=== PATIENT | female | born 1990 | race Two or more races ===

== ENCOUNTER 2020-11-24 14:01 | Outpatient (CLI) | payer OTHER | END 2020-11-24 15:16 | disposition home or self-care (01) | LOC: PRENATAL 14:01 | PROVIDERS: ATTEND Obstetrics & Gynecology Maternal & Fetal Medicine | DX: O35.0XX1 Maternal care for (suspected) central nervous system malformation in fetus, fetus 1 (principal); O35.3XX1 Maternal care for (suspected) damage to fetus from viral disease in mother, fetus 1; O98.512 Other viral diseases complicating pregnancy, second trimester; O34.212 Maternal care for vertical scar from previous cesarean delivery; Z36.89 Encounter for other specified antenatal screening; Z3A.24 24 weeks gestation of pregnancy ==

== ENCOUNTER 2021-01-25 14:55 | Outpatient (CLI) | payer OTHER | END 2021-01-25 15:35 | disposition home or self-care (01) | LOC: PRENATAL 14:55 | PROVIDERS: ATTEND Obstetrics & Gynecology Maternal & Fetal Medicine | DX: O26.843 Uterine size-date discrepancy, third trimester (principal); O35.0XX1 Maternal care for (suspected) central nervous system malformation in fetus, fetus 1; O36.8131 Decreased fetal movements, third trimester, fetus 1; Z36.89 Encounter for other specified antenatal screening; Z3A.32 32 weeks gestation of pregnancy ==

== ENCOUNTER 2021-02-24 14:33 | Inpatient (IN) | payer OTHER ==
[~2021-02-24] VITALS: Ht 154.9 cm; Wt 2.7 kg
[2021-03-01] MEDS ORDERED: ZOFRAN4 MG PO (08:43)
[2021-03-01] MEDS ORDERED: PRENATAL CAPLE1 EAC1 PO (08:44)
== END 2021-03-04 16:24 | disposition home or self-care (01) | DRG 788 ==
LOC: LDR 03-01 07:00 → O/R 03-01 07:51 → OB/GYN 03-01 07:51 → LDR 03-01 13:45 → OB/GYN 03-04 16:24
PROVIDERS: ADMIT Obstetrics & Gynecology; ATTEND Obstetrics & Gynecology
PROC: 4A1HXFZ Monitoring of Products of Conception, Cardiac Rhythm, External Approach (ICD-10-PCS; 2021-03-01)
PROC: 10D00Z1 Extraction of Products of Conception, Low, Open Approach (ICD-10-PCS; principal; 2021-03-01 07:00)
DX: O65.5 Obstructed labor due to abnormality of maternal pelvic organs (principal); O34.29 Maternal care due to uterine scar from other previous surgery; Z37.0 Single live birth; Z3A.37 37 weeks gestation of pregnancy

== ENCOUNTER 2023-01-18 08:47 | Emergency (ER) | payer OTHER ==
[~2023-01-18] VITALS: Ht 162.6 cm; Wt 75.3 kg
[~2023-01-18 08:47] MED LIST: PRENATAL CAPLE1 EAC1 PO; ZOFRAN4 MG PO
[2023-01-18] MEDS ORDERED: PROCHLORPERAZIN25 GM (09:19)
[2023-01-18 12:57] LABS: HEMATOCRIT 34.7 % (36.0-45.00); HEMOGLOBIN 12.3 g/dL (12.0-15.00); MEAN CORPUSCULAR HEMOGLOBIN 30.1 pg (27.00-32.0); MEAN CORPUSCULAR HGB CONC 35.4 g/dl (32.0-36.0); PLATELET COUNT 212 K/uL (150-450); RED BLOOD COUNT 4.08 M/uL (4.00-6.00); RED CELL DISTRIBUTION WIDTH 12.9 % (11.5-14.5)
[2023-01-18 13:25] LABS: PH,URINE 5.5 (5.0-8.0); URINE APPEARANCE Clear; URINE BILIRRUBIN Negative (NEGATIVE); URINE BLOOD Negative; URINE COLOR Yellow; URINE GLUCOSE Negative (NEGATIVE); URINE LEUKOCYTE Negative; URINE NITRATE Negative; URINE PROTEIN Negative (NEGATIVE); URINE UROBILINOGEN 0.2 E.U./dl
[2023-01-18 13:28] LABS: URINE BACTERIA 609.7 uL (0.0-1933); URINE EPITHELIAL CELLS 17.5 uL (0.0-38.8); URINE WBC 7.2 uL (0.0-23.2)
[2023-01-18 13:32] LABS: URINE RBC 1.7 uL (0.0-20.8)
[2023-01-18 13:55] LABS: CALCIUM 9.2 mg/dL (8.5-10.1); CREATININE SERUM 0.48 mg/dL (0.55-1.02); GFR 148.04; POTASSIUM 3.65 mEq/L (3.5-5.1)
== END 2023-01-18 15:25 | disposition home or self-care (01) ==
LOC: ER 08:47
PROVIDERS: General Practice
DX: O98.512 Other viral diseases complicating pregnancy, second trimester (principal); U07.1 COVID-19; Z3A.17 17 weeks gestation of pregnancy

== ENCOUNTER 2023-02-06 12:51 | Outpatient (CLI) | payer OTHER ==
[~2023-02-06 12:51] MED LIST changes: +PROCHLORPERAZIN25 GM
== END 2023-02-06 12:52 | disposition home or self-care (01) ==
LOC: PRENATAL 12:51
PROVIDERS: ATTEND Obstetrics & Gynecology Maternal & Fetal Medicine
DX: O35.3XX0 Maternal care for (suspected) damage to fetus from viral disease in mother, not applicable or unspecified (principal); O44.00 Complete placenta previa NOS or without hemorrhage, unspecified trimester; O09.529 Supervision of elderly multigravida, unspecified trimester; O34.219 Maternal care for unspecified type scar from previous cesarean delivery; Z3A.20 20 weeks gestation of pregnancy

== ENCOUNTER 2023-05-01 09:12 | Outpatient (CLI) | payer OTHER | END 2023-05-01 09:13 | disposition home or self-care (01) | LOC: PRENATAL 09:12 | PROVIDERS: ATTEND Obstetrics & Gynecology Maternal & Fetal Medicine | DX: O26.849 Uterine size-date discrepancy, unspecified trimester (principal); O36.8199 Decreased fetal movements, unspecified trimester, other fetus; O09.529 Supervision of elderly multigravida, unspecified trimester; O34.219 Maternal care for unspecified type scar from previous cesarean delivery; Z3A.32 32 weeks gestation of pregnancy ==

== ENCOUNTER 2023-05-22 16:15 | Outpatient (CLI) | payer OTHER ==
[2023-05-22] MEDS ORDERED: RINGERS SOLUTION,LACTATED 1,000 ML IV SCH (16:45)
[2023-05-22] MEDS ORDERED: CHILDREN'S ASPI81 MG PO (16:56)
[2023-05-22 17:46] LABS: PH,URINE 6.5 (5.0-8.0); URINE APPEARANCE Clear; URINE BILIRRUBIN Negative (NEGATIVE); URINE BLOOD Negative; URINE COLOR Yellow; URINE LEUKOCYTE Negative; URINE NITRATE Negative; URINE PROTEIN Negative (NEGATIVE)
[2023-05-22 17:47] LABS: HEMATOCRIT 31.7 % (36.0-45.00); HEMOGLOBIN 10.9 g/dL (12.0-15.00); MEAN CELL VOLUME 85.9 fL (80.00-100.00); MEAN CORPUSCULAR HEMOGLOBIN 29.6 pg (27.00-32.0); MEAN CORPUSCULAR HGB CONC 34.5 g/dl (32.0-36.0); PLATELET COUNT 208 K/uL (150-450); RED BLOOD COUNT 3.69 M/uL (4.00-6.00); RED CELL DISTRIBUTION WIDTH 13.2 % (11.5-14.5)
[2023-05-22 17:49] LABS: URINE BACTERIA 105.7 uL (0.0-1933); URINE EPITHELIAL CELLS 15.3 uL (0.0-38.8); URINE WBC 2.4 uL (0.0-23.2)
[2023-05-22 18:00] LABS: URINE GLUCOSE 500 MG/DL (NEGATIVE); URINE RBC 0.7 uL (0.0-20.8)
[2023-05-22 18:03] LABS: INR 0.95; PARTIAL THROMBOPLASTIN TIME 29.7 SECONDS (22.0-34.0)
[2023-05-22 18:08] LABS: ALBUMIN 2.5 gm/dL (3.4-5.0); BILIRUBIN TOTAL 0.43 mg/dL (0.3-1.2); CREATININE SERUM 0.42 mg/dL (0.55-1.02); GFR 172.71; POTASSIUM 3.87 mEq/L (3.5-5.1); TOTAL PROTEIN 5.5 gm/dL (6.4-8.2)
[2023-05-22 23:07] LABS: URINE APPEARANCE Cloudy; URINE BILIRRUBIN Negative (NEGATIVE); URINE BLOOD Negative; URINE COLOR Yellow; URINE GLUCOSE Negative (NEGATIVE); URINE LEUKOCYTE Small; URINE NITRATE Negative; URINE PROTEIN Negative (NEGATIVE)
[2023-05-22 23:08] LABS: URINE BACTERIA 490.1 uL (0.0-1933)
== END 2023-05-23 15:40 | disposition home or self-care (01) ==
LOC: OBS/DEL 16:15
PROVIDERS: ATTEND Obstetrics & Gynecology
DX: O26.893 Other specified pregnancy related conditions, third trimester (principal); Z3A.35 35 weeks gestation of pregnancy; R10.2 Pelvic and perineal pain; O26.849 Uterine size-date discrepancy, unspecified trimester; O36.8199 Decreased fetal movements, unspecified trimester, other fetus; O60.00 Preterm labor without delivery, unspecified trimester

== ENCOUNTER 2023-06-07 10:25 | Inpatient (IN) | payer OTHER ==
[~2023-06-07] VITALS: Ht 160 cm; Wt 2.7 kg
[~2023-06-07 10:25] MED LIST changes: +CHILDREN'S ASPI81 MG PO
[2023-06-07] MEDS ORDERED: IRON18 MG (11:46)
[2023-06-07 12:09] LABS: HEMATOCRIT 34.7 % (36.0-45.00); HEMOGLOBIN 11.9 g/dL (12.0-15.00); MEAN CELL VOLUME 85.2 fL (80.00-100.00); MEAN CORPUSCULAR HEMOGLOBIN 29.3 pg (27.00-32.0); MEAN CORPUSCULAR HGB CONC 34.4 g/dl (32.0-36.0); PLATELET COUNT 222 K/uL (150-450); RED BLOOD COUNT 4.07 M/uL (4.00-6.00)
[2023-06-07 12:39] LABS: ALBUMIN 2.9 gm/dL (3.4-5.0); BILIRUBIN TOTAL 1.1 mg/dL (0.3-1.2); CALCIUM 9.2 mg/dL (8.5-10.1); CREATININE SERUM 0.42 mg/dL (0.55-1.02); GFR 171.69; GLOBULINA 3.3 G/DL (2.4-3.5); POTASSIUM 3.95 mEq/L (3.5-5.1); TOTAL PROTEIN 6.2 gm/dL (6.4-8.2)
[2023-06-07 12:49] LABS: INR 0.95; PARTIAL THROMBOPLASTIN TIME 29.1 SECONDS (22.0-34.0)
[2023-06-07] MEDS ORDERED: CEFAZOLIN SODIUM 1,000 MG VIAL IV SCH (15:30)
[2023-06-07] MEDS ORDERED: OXYTOCIN 10 UNITS/ML VIAL ONE (15:34)
[2023-06-07] MEDS ORDERED: ERYTHROMYCIN BASE 3.5 GM OINT...G. OP ONE (15:34)
[2023-06-07] MEDS ORDERED: ERYTHROMYCIN BASE 1 GM TUBE OP ONE (18:15)
[2023-06-07] MEDS ORDERED: OXYTOCIN 10 UNITS/ML VIAL IV ONE (18:15)
[2023-06-07] MEDS ORDERED: PROMETHAZINE HCL 50 MG/ML AMPUL IM PRN (18:30)
[2023-06-07] MEDS ORDERED: KETOROLAC TROMETHAMINE 30 MG VIAL IV SCH (18:30)
[2023-06-07] MEDS ORDERED: MEPERIDINE HCL/PF 50 MG/ML VIAL IM PRN (18:30)
[2023-06-07] MEDS ORDERED: KETOROLAC TROMETHAMINE 30 MG VIAL ONE (19:22)
[2023-06-08] MEDS ORDERED: OxyCODONE HCL/APAP UD (PERCOCET) PO PRN (08:00)
[2023-06-08] MEDS ORDERED: PNV,CALCIUM 72/IRON/FOLIC ACID 1 TAB TABLET PO SCH (08:00)
[2023-06-08] MEDS ORDERED: SIMETHICONE 125 MG CAPSULE PO SCH (08:00)
[2023-06-08] MEDS ORDERED: DOCUSATE SODIUM 100MG CAP PO SCH (08:00)
[2023-06-08 11:52] LABS: HEMATOCRIT 31.4 % (36.0-45.00); MEAN CELL VOLUME 86.5 fL (80.00-100.00); MEAN CORPUSCULAR HEMOGLOBIN 30.2 pg (27.00-32.0); MEAN CORPUSCULAR HGB CONC 34.9 g/dl (32.0-36.0); RED BLOOD COUNT 3.63 M/uL (4.00-6.00); RED CELL DISTRIBUTION WIDTH 12.9 % (11.5-14.5)
[2023-06-08 12:25] LABS: PLATELET COUNT 234 K/uL (150-450)
[2023-06-08] MEDS ORDERED: IBUprofen 800 MG TABLET PO SCH (18:30)
== END 2023-06-09 17:41 | disposition home or self-care (01) | DRG 785 ==
LOC: LDR 10:25 → O/R 16:47 → OB/GYN 18:33
PROVIDERS: ADMIT Obstetrics & Gynecology; ATTEND Obstetrics & Gynecology
PROC: 0UB70ZZ Excision of Bilateral Fallopian Tubes, Open Approach (ICD-10-PCS; 2023-06-07)
PROC: 4A1HXCZ Monitoring of Products of Conception, Cardiac Rate, External Approach (ICD-10-PCS; 2023-06-07)
PROC: 10D00Z1 Extraction of Products of Conception, Low, Open Approach (ICD-10-PCS; principal; 2023-06-07 15:30)
DX: O33.8 Maternal care for disproportion of other origin (principal); O34.211 Maternal care for low transverse scar from previous cesarean delivery; O99.824 Streptococcus B carrier state complicating childbirth; Z3A.37 37 weeks gestation of pregnancy; Z30.2 Encounter for sterilization; Z20.822 Contact with and (suspected) exposure to COVID-19; Z37.0 Single live birth